=== PATIENT | male | born 1935 | race Caucasian/White ===

== ENCOUNTER → 2018-04-21 08:31 | Emergency (ER) | payer MEDICARE ==
[~2018-04-21 08:31] MED LIST: Meclizine TAB* 12.5 MG PO ONE
--- NOTE | 2018-04-21 08:57 | ED ---
Dizziness - HPI Summary HPI Summary: Patient is a 82 y/o M w/ c/o episodes of dizziness. He reports that episodes onset two weeks ago. Dizziness is described as room-spinning and is noted to be aggravated by bending over/sitting up. Fever, sore throat, chest pain, SOB are denied. Patient has a pacemaker and hearing aids. PMHx of third degree heart block as well. No PMHx of HTN, HLD, CVA. On triage, pain is denied, nothing is noted to alleviate Sx. Home medications and allergies are reviewed. - History Of Current Complaint Chief Complaint: EDDizziness Stated Complaint: DIZZY Time Seen by Provider: 04/21/18 08:46 Hx Obtained From: Patient Onset/Duration: Still Present Timing: Weeks - patient has had episodes for past two weeks Severity Currently: None - pain denied Character: Room Spinning Aggravating Factor(s): Position Change - bending over and sitting up, Change In Head Position Associated Signs And Symptoms: Positive: Other: - NEGATIVE: sore throat. Negative: Chest Pain, SOB, Fever - Allergies/Home Medications Allergies/Adverse Reactions: Allergies Allergy/AdvReac Type Severity Reaction Status Date / Time No Known Allergies Allergy Verified 04/21/18 08:45 PMH/Surg Hx/FS Hx/Imm Hx Endocrine/Hematology History: Reports: Other Endocrine/Hematological Disorders - NEGATIVE: HLD Cardiovascular History: Reports: Hx Pacemaker/ICD Denies: Hx Hypertension Sensory History: Reports: Hx Hearing Aid Neurological History: Denies: Hx CVA Infectious Disease History: No Infectious Disease History: Denies: Traveled Outside the [place] in Last 30 Days - Family History Known Family History: Negative: Blood Disorder - Social History Alcohol Use: None Substance Use Type: Reports: None Smoking Status (MU): Never Smoked Tobacco Review of Systems Negative: Fever Negative: Sore Throat Negative: Chest Pain Negative: Shortness Of Breath Neurological: Other - dizziness All Other Systems Reviewed And Are Negative: Yes Physical Exam - Summary Physical Exam Summary: Appearance: Well appearing, no pain distress Skin: warm, dry, reflects adequate perfusion Head/face: normal Eyes: EOMI, JOHN ENT: normal Neck: supple, non-tender Respiratory: CTA, breath sounds present Cardiovascular: RRR, pulses symmetrical Abdomen: non-tender, soft Bowel: present Musculoskeletal: normal, strength/ROM intact Neuro: normal, sensory motor intact, A&Ox3; GCS 15; patient reports dizziness when moving his head quickly from side to side Triage Information Reviewed: Yes Vital Signs On Initial Exam: Initial Vitals Temp Pulse Resp BP Pulse Ox 97.4 F 67 14 154/98 96 04/21/18 08:42 04/21/18 08:42 04/21/18 08:42 04/21/18 08:42 04/21/18 08:42 Vital Signs Reviewed: Yes Diagnostics - Vital Signs Vital Signs Temp Pulse Resp BP Pulse Ox 04/21/18 08:42 97.4 F 67 14 154/98 96 - Laboratory Result Diagrams: 04/21/18 09:08 04/21/18 09:08 Lab Statement: Any lab studies that have been ordered have been reviewed, and results considered in the medical decision making process. - CT BRAIN CT CT Interpretation Completed By: Radiologist Summary of CT Findings: NO EVIDENCE FOR ACUTE INTRACRANIAL ABNORMALITY. THIS REPORT WAS REVIEWED BY ED PHYSICIAN. - EKG 0918 Cardiac Rate: NL - RATE OF 60 BPM EKG Rhythm: Sinus Rhythm Summary of EKG Findings: NO ACUTE CHANGES Re-Evaluation - Re-Evaluation First Eval Re-Evaluation Time: 11:15 Comment: Results of labs and tests were discussed with patient. He will be discharged to home and follow up with PCP. Patient is agreeable with this plan. Dizzy Course/Dx - Course Course Of Treatment: Patient is a 82 y/o M w/ c/o episodes of dizziness. He reports that episodes onset two weeks ago. Dizziness is described as room- spinning and is noted to be aggravated by bending over/sitting up. Fever, sore throat, chest pain, SOB are denied. Patient has a pacemaker and hearing aids. PMHx of third degree heart block as well. No PMHx of HTN, HLD, CVA. On physical exam, patient reports dizziness when moving his head quickly from side to side, no other abnormal findings reported. GCS 15. During ED course, patient received Antivert Tab 25 mg. Bloodwork/UA was obtained. EKG showed sinus rhythm with rate of 60 BPM, no acute changes. BRAIN CT SHOWS NO EVIDENCE FOR ACUTE INTRACRANIAL ABNORMALITY. Results of labs and tests were discussed with patient. He will be discharged to home and follow up with PCP. Patient is agreeable with this plan. Dx of vertigo. - Diagnoses Differential Diagnosis/HQI/PQRI: Benign Paroxysmal Positional Vertigo, Dysrhythmia, Hypovolemia, Meniere's Disease Provider Diagnoses: Vertigo Discharge - Sign-Out/Discharge Documenting (check all that apply): Patient Departure - DISCHARGE - Discharge Plan Condition: Stable Disposition: HOME Prescriptions: Meclizine TAB* [Antivert 12.5 TAB*] 25 mg PO TID #15 tab Patient Education Materials: Vertigo (ED) Referrals: Silvino Toro MD [Primary Care Provider] - 3 Days Additional Instructions: FOLLOW UP WITH YOUR PRIMARY CARE PHYSICIAN IN THREE DAYS. RETURN TO ED FOR ANY NEW OR WORSENING SYMPTOMS. - Billing Disposition and Condition Condition: STABLE Disposition: Home - Attestation Statements Document Initiated by Scribe: Yes Documenting Scribe: Champ Simon Provider For Whom Gumaro is Documenting (Include Credential): Ben Ceron MD Scribe Attestation: Champ Strong , scribed for Ben Ceron MD on 04/21/18 at 1322. Scribe Documentation Reviewed: Yes Provider Attestation: The documentation as recorded by the Champ goss accurately reflects the service I personally performed and the decisions made by , Ben Ceron MD
[2018-04-21 09:14] LABS: ABS Basophils 0 10^3/ul (0-0.2); ABS Eosinophils 0.2 10^3/ul (0-0.6); ABS Lymphocytes 1.3 10^3/ul (1.0-4.8); ABS Monocytes 0.5 10^3/ul (0-0.8); ABS Nucleated RBC 0 10^3/ul; Eosinophil % 2.7 % (0-6); Hematocrit 42 % (42-52); Hemoglobin 14.5 g/dl (14.0-18.0); Lymphocyte % 21.2 % (25-47); Mean Corpuscular HGB Conc 35 g/dl (31-36); Mean Corpuscular Hemoglobin 31 pg (27-31); Mean Corpuscular Volume 89 fL (80-94); Mean Platelet Volume 7.8 um3 (7.4-10.4); Nucleated Red Blood Cells % 0.1; Platelet Count 148 10^3/ul (150-450); Red Blood Count 4.69 10^6/ul (4.00-5.40); Red Cell Distribution Width 13 % (10.5-15)
[2018-04-21 09:28] LABS: INR 0.9 (0.77-1.02)
--- NOTE | 2018-04-21 09:50 | RAD ---
INDICATION: Dizziness. COMPARISON: There are no relevant prior studies available for comparison. TECHNIQUE: Contiguous axial sections of the brain were obtained from the skull base to the vertex without contrast. FINDINGS: The ventricles, cisterns and sulci are enlarged consistent with diffuse atrophy. No significant focal abnormality or mass effect is seen. There is no evidence for hemorrhage. No significant focal osseous abnormality is seen. The visualized portion of the paranasal sinuses and mastoid air cells appear clear. IMPRESSION: NO EVIDENCE FOR ACUTE INTRACRANIAL ABNORMALITY.
[2018-04-21 10:58] LABS: Urine Appearance Clear; Urine Blood Negative (Negative); Urine Color Yellow; Urine Ketones Negative (Negative); Urine Protein Negative (Negative); Urine Specific Gravity 1.017 (1.010-1.030); Urine Urobilinogen Negative (Negative)
[2018-04-21 11:27] VITALS: BP 130/71
== END | disposition home or self-care (01) ==
LOC: ED 08:31
DX: R42 Dizziness and giddiness (principal); Z95.810 Presence of automatic (implantable) cardiac defibrillator
CPT/HCPCS: 36415; 70450; 80053; 81003; 84484; 85025; 85610; 85730; 93005; 99283; A9270-GY

== ENCOUNTER 2019-01-10 16:17 | Emergency (ER) | payer MEDICARE ==
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
[2019-01-10 17:37] VITALS: BP 128/49
== END 2019-01-10 17:37 | disposition home or self-care (01) ==
LOC: ED 16:17
DX: S50.312A Abrasion of left elbow, initial encounter (principal); S80.212A Abrasion, left knee, initial encounter; V13.4XXA Pedal cycle driver injured in collision with car, pick-up truck or van in traffic accident, initial encounter; Y93.55 Activity, bike riding; Y92.410 Unspecified street and highway as the place of occurrence of the external cause; Z95.0 Presence of cardiac pacemaker; Z87.891 Personal history of nicotine dependence
CPT/HCPCS: 99282

== ENCOUNTER 2019-04-15 09:56 | Inpatient (IN) | payer MEDICARE ==
[2019-04-15 10:31] LABS: ABS Eosinophils 0.1 10^3/ul (0-0.6); ABS Lymphocytes 1.2 10^3/ul (1.0-4.8); ABS Monocytes 0.7 10^3/ul (0-0.8); ABS Neutrophils 3.9 10^3/ul (1.5-7.7); Hematocrit 44 % (42-52); Hemoglobin 15.1 g/dL (14.0-18.0); Lymphocyte % 19.8 %; Mean Corpuscular HGB Conc 35 g/dL (31-36); Mean Corpuscular Hemoglobin 31 pg (27-31); Mean Corpuscular Volume 90 fL (80-94); Mean Platelet Volume 7.7 fL (7.4-10.4); Platelet Count 153 10^3/uL (150-450); Red Blood Count 4.87 10^6 /uL (4.18-5.48); Red Cell Distribution Width 14 % (10-15); White Blood Count 5.9 10^3/uL (3.5-10.8)
--- OUTSIDE RECORDS SUMMARY | 2019-04-15 10:33 | XMS REPORT | Continuity of Care Document ---
:1935 External Reference #:[id number] Author Name Jaydon Mcgee N.P. (transmitted by agent of provider Ria Crenshaw) Address [address] [facility], [facility] [place] [id number] Care Team Providers Name Role Phone Silvino Toro MD - Family Medicine Care Team Information Plant Wire Chief [phone] Korey Quesada MD - Emergency Care Team Information Plant Wire Chief [phone] Medicine Problems Active Problems Provider Date Cardiac pacemaker in situ Monique Tang M.D. Onset: 09/23/2013 Peripheral vascular disease Monique Tang M.D. Onset: 09/23/2013 Carotid artery occlusion Monique Tang M.D. Onset: 09/24/2014 Hyperlipidemia Monique Tang M.D. Onset: 09/24/2014 Pure hypercholesterolemia Monique Tang M.D. Onset: 11/27/2015 Aortic valve disorder Monique Tang M.D. Onset: 05/12/2017 Social History Type Date Description Comments Sex Unknown ETOH Use Denies alcohol use Tobacco Use Start: Unknown End: Patient is a former Quit at age 27-29, Unknown smoker smoked for 5 yr, quit in 1963 Recreational Drug Use Denies Drug Use Smoking Status Reviewed: 04/01/19 Patient is a former Quit at age 27-29, smoker smoked for 5 yr, quit in 1963 Exercise Type/Frequency Exercises regularly Allergies, Adverse Reactions, Alerts Description No Known Drug Allergies Medications Active Medications SIG Qnty Indications Ordering Provider Date Crestor 1 by mouth every 90tabs E78.00 Monique Tang, 05/03/2016 20mg Tablets day M.D. Aspirin 1 by mouth every Unknown 81mg Tablets DR day Multivitamins 1 capsule daily 30caps Unknown Capsules Coq-10 1 by mouth every 90caps Unknown 50mg Capsules day Fish Oil Burp-Less 1 by mouth daily Unknown 100mg Capsules Probiotic 1 by mouth every Unknown Capsules day Immunizations Description No Information Available Vital Signs Date Vital Result Comment 04/01/2019 10:28am Height 67.75 inches 5'7.75" Weight 160.38 lb Heart Rate 74 /min BP Systolic 122 mmHg BP Diastolic 72 mmHg BMI (Body Mass Index) 24.6 kg/m2 03/29/2019 3:08pm Height 67.75 inches 5'7.75" Weight 158.00 lb with shoes Heart Rate 60 /min BP Systolic Sitting 122 mmHg BP Diastolic Sitting 66 mmHg BP Systolic Standing 118 mmHg BP Diastolic Standing 60 mmHg BMI (Body Mass Index) 24.2 kg/m2 Ejection Fraction 55-60% Echo 11/11/16 Results Description No Information Available Procedures Date Code Description Status 03/29/2019 39349 Pace Maker Eval W/Iterative Adjment Dual Lead Completed 03/29/2019 09553 EKG Tracing & Interpretation Completed Medical Devices Description No Information Available Encounters Description No Information Available Assessments Date Code Description Provider 04/01/2019 R53.83 Other fatigue Jaydon Mcgee, N.P. 04/01/2019 R41.3 Other amnesia Jaydon Mcgee N.P. 04/01/2019 R42 Dizziness and giddiness Jaydon Mcgee N.P. 03/29/2019 Z95.0 Presence of cardiac pacemaker Linette Bellamy NP 03/29/2019 Z95.0 Presence of cardiac pacemaker Ica Pacer Schedule 03/29/2019 I65.23 Occlusion and stenosis of bilateral carotid Linette Bellamy NP arteries 03/29/2019 R55 Syncope and collapse Ica Pacer Schedule 03/29/2019 E78.00 Pure hypercholesterolemia, unspecified Linette Bellamy NP 03/29/2019 I35.0 Nonrheumatic aortic (valve) stenosis Linette Bellamy NP 03/29/2019 Z79.899 Other predatory animal exterminator (current) drug therapy Linette Bellamy NP Plan of Treatment Future Appointment(s):05/16/2019 9:00 am - Jaydon Mcege N.P. at [facility]04/08/2019 2:00 pm - Ica ECHO Schedule at [facility]04/01/2019 - Jaydon Mcgee N.P.R53.83 Other fatigueFollow up :6 weeksRecommendations:The medication we would consider starting is StycmkrP47.3 Other amnesiaNew Xrays:CT Brain Wo, Ordered: Recommendations:Please send over the carotid u/s reports and the echocardiogram please remain active and social, please start doing either crossword puzzle, jigsaw puzzles, or word searches,R42 Dizziness and giddiness Functional Status Description No Information Available Mental Status Description No Information Available Referrals Description No Information Available
--- OUTSIDE RECORDS SUMMARY | 2019-04-15 10:34 | XMS REPORT | Continuity of Care Document ---
:1935 External Reference #:[id number] Author Name Linette Bellamy NP (transmitted by agent of provider Elsie Carlson) Address [address] [place] [id number] Care Team Providers Name Role Phone Silvino Toro MD - Family Medicine Care Team Information Adaptive Physical Educator Korey Quesada MD - Emergency Care Team Information Adaptive Physical Educator [phone] Medicine Problems Active Problems Provider Date Cardiac [...] Use Denies Drug Use Smoking Status Reviewed: 03/29/19 Patient is a former Quit at age [...] Available Vital Signs Date Vital Result Comment 03/29/2019 3:08pm Height 67.75 inches 5'7.75" Weight 158.00 lb with shoes Heart Rate 60 /min BP Systolic Sitting 122 mmHg BP Diastolic Sitting 66 mmHg BP Systolic Standing 118 mmHg BP Diastolic Standing 60 mmHg BMI (Body Mass Index) 24.2 kg/m2 Ejection Fraction 55-60% Echo 11/11/16 12/08/2017 3:43pm Height 67.75 inches 5'7.75" Weight 178.00 lb with shoes Heart Rate 60 /min BP Systolic Sitting 110 mmHg Lue reg cuff BP Diastolic Sitting 60 mmHg Lue reg cuff BP Systolic Standing 114 mmHg Lue reg cuff BP Diastolic Standing 70 mmHg Lue reg cuff Respiratory Rate 16 /min BMI (Body Mass Index) 27.3 kg/m2 Ejection Fraction 55-60% date 11/11/16 ECHO Results Description No Information Available Procedures Date Code Description Status 03/29/2019 02265 Pace Maker Eval W/Iterative Adjment Dual Lead Completed 03/29/2019 35630 EKG Tracing & Interpretation Completed Medical Devices Description No Information Available Encounters Description No Information Available Assessments Date Code Description Provider 03/29/2019 Z95.0 Presence of cardiac pacemaker Linette Bellamy NP 03/29/2019 Z95.0 Presence of cardiac pacemaker Ica Pacer Schedule 03/29/2019 I65.23 Occlusion and stenosis of bilateral carotid Linette Bellamy NP arteries 03/29/2019 R55 Syncope and collapse Ica Pacer Schedule 03/29/2019 E78.00 Pure hypercholesterolemia, unspecified Linette Bellamy NP 03/29/2019 I35.0 Nonrheumatic aortic (valve) stenosis Linette Bellamy NP 03/29/2019 Z79.899 Other rodent exterminator (current) drug therapy Linette Bellamy NP Plan of Treatment Future Appointment(s):04/08/2019 2:00 pm - Ica ECHO Schedule at [facility]04/01/2019 10:30 am - Jaydon Mcgee N.P. at [facility]03/29/2019 - Linette Bellamy, NPZ95.0 Presence of cardiac pacemakerFollow up:follow up in one year with Dr. Hamilton.23 Occlusion and stenosis of bilateral carotid arteriesNew Xrays:VL Carotid Bilateral, Scheduled: 04/16/19E78.00 Pure hypercholesterolemia, dquvcewaxyoC66.0 Nonrheumatic aortic (valve) stenosisNew Orders:Echocardiogram, Ordered: 03/29/19Z79.899 Other retirement (current) drug therapy Functional Status Description No Information Available Mental Status Description No Information Available Referrals Description No Information Available
[2019-04-15 10:44] LABS: INR 0.96 (0.82-1.09)
[2019-04-15 10:48] LABS: Albumin 4.5 g/dL (3.2-5.2); Albumin/Globulin Ratio 1.9 (1-3); BUN/Creatinine Ratio 21.8 (8-20); Calcium 9.7 mg/dL (8.6-10.3); EGFR African American 101.2 (>60); EGFR Non-African American 83.6 (>60); Globulin 2.4 g/dL (2-4); Potassium 4.2 mmol/L (3.5-5.0); Total Bilirubin 0.9 mg/dL (0.2-1.0); Total Protein 6.9 g/dL (6.4-8.9)
[2019-04-15] MEDS ORDERED: levETIRAcetam TAB* 500 MG PO ONE (12:10)
[2019-04-15 13:09] LABS: Activated Partial Thrombo Time 39.6 seconds (26.0-38.0)
[2019-04-15] MEDS ORDERED: Acetaminophen TAB* 325 MG PO PRN (14:33)
[2019-04-15] MEDS ORDERED: Ondansetron INJ* 2 MG/ML VIAL IV PRN (14:33)
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
[2019-04-15] MEDS: NS 0.9% 1000 ML** 1,000 ML IV SCH (23:34)
[2019-04-16 06:09] LABS: ABS Eosinophils 0.1 10^3/ul (0-0.6); ABS Lymphocytes 1.5 10^3/ul (1.0-4.8); ABS Monocytes 0.6 10^3/ul (0-0.8); ABS Neutrophils 3.4 10^3/ul (1.5-7.7); Eosinophil % 1.9 %; Hematocrit 41 % (42-52); Lymphocyte % 26.4 %; Mean Corpuscular HGB Conc 34 g/dL (31-36); Mean Corpuscular Hemoglobin 31 pg (27-31); Mean Corpuscular Volume 90 fL (80-94); Mean Platelet Volume 7.5 fL (7.4-10.4); Nucleated Red Blood Cells % 0.1; Platelet Count 138 10^3/uL (150-450); Red Blood Count 4.58 10^6 /uL (4.18-5.48); Red Cell Distribution Width 14 % (10-15); White Blood Count 5.7 10^3/uL (3.5-10.8)
[2019-04-16 06:37] LABS: BUN/Creatinine Ratio 23.8 (8-20); Calcium 9.2 mg/dL (8.6-10.3); EGFR African American 111.4 (>60); EGFR Non-African American 92.1 (>60); Potassium 3.9 mmol/L (3.5-5.0)
[2019-04-16] MEDS: Lactobacillus Acidophilus* 1 TAB PO SCH (11:05)
[2019-04-16] MEDS: Multivitamins/Minerals TAB PO SCH (11:05)
[2019-04-16] MEDS: Memantine TAB* 5 MG PO SCH (11:05)
[2019-04-16] MEDS: Atorvastatin* 10 MG TAB PO SCH (11:05)
[2019-04-16] MEDS: CMCS:OMEGA-3 FATTY ACIDS (NF) 1,000 MG CAP PO SCH (11:06)
--- NOTE | 2019-04-16 14:24 | PN ---
Progress Note - Progress Note Date of Service: 04/16/19 SOAP: Subjective: []No events ON. In ICU. NPO overnight for OR today. Objective: []VSS, Afebrile. AAOx2 JOHN, CN II-XII grossly intact, except decreased hearing bilaterally. Motor 5/5 no drift sensory grossly intact to light touch. Assessment: []83 yom Left Chronic SDH Plan: []Monitor VS, Neurochecks Patient and family would like to transfer to [place] for possible surgery due to coverage over the weekend. Discussed in extend with patient. Patient will be transferred to [place]. Appreciate IM care. Les Jesus MD
[2019-04-16] MEDS: NS 0.9% 1000 ML** 1,000 ML IV SCH (19:24)
--- NOTE | 2019-04-16 22:12 | PN ---
Subjective Date of Service: 04/16/19 Interval History: Patient reports that he is feeling well, reports that he is having difficulty with his memory. Patient denies chest pain or shortness of breath. Denies fever or chills. Denies abd pain n/v/d. Family present in the room at the time evaluation. Requesting that the patient be transferred for surgical intervention d/t neurosurgery recommendation for surgery but not available for surgery coverage as of . Spoke to neurosurgery agreeable with plan to transfer d/t the patient's wishes to proceed with surgery. [id number]- transfer center contact - no bed available at [facility] - no bed available at this time will place on waiting list. contacted [facility] - Spoke to neurosurgery who recommended medical management and monitoring, Dr. Yoo advised and given neurosurgery Dr. Can contact number- to further discuss the case. contacted to [facility] - spoke to neurosurgery who recommended medical management, transfer to hospital service and then they would consult. Hospitalist service declined acceptance. Updated Dr. Yoo of no bed availability and no acceptance at the other facilities. recommended repeat CT of head in the AM and he will make further recommendations in the AM. Family History: Unchanged from Admission Social History: Unchanged from Admission Past Medical History: Unchanged from Admission Objective Active Medications: Acetaminophen (Tylenol Tab*) 650 mg PO Q4H PRN PRN Reason: MILD PAIN or TEMP > 100.4 Last Admin: 04/16/19 12:36 Dose: 650 mg Atorvastatin Calcium (Lipitor*) 10 mg PO DAILY [facility] Last Admin: 04/16/19 11:05 Dose: Not Given Fish Oil (Fish Oil (Nf)) 1,000 mg PO DAILY [facility]; Protocol Last Admin: 04/16/19 11:06 Dose: Not Given Sodium Chloride (Ns 0.9% 1000 Ml) 1,000 mls @ 50 mls/hr IV .PER RATE [facility] Last Admin: 04/16/19 19:24 Dose: 50 mls/hr Lactobacillus Rhamnosus (Lactobacillus Acidophilus*) 1 tab PO DAILY [facility] Last Admin: 04/16/19 11:05 Dose: Not Given Memantine (Namenda Tab*) 5 mg PO QAM [facility] Last Admin: 04/16/19 11:05 Dose: Not Given Multivitamins/Minerals (Theragran/Minerals Tab*) 1 tab PO DAILY WITH MEAL [facility] Last Admin: 10/22/19 11:05 Dose: Not Given Ondansetron HCl (Zofran Inj*) 4 mg IV Q6H PRN PRN Reason: NAUSEA/VOMITING Vital Signs - 8 hr 04/16/19 04/16/19 04/16/19 14:00 15:00 16:00 Temperature Pulse Rate 64 61 74 Respiratory 21 28 17 Rate Blood Pressure 148/74 (mmHg) O2 Sat by Pulse 96 96 96 Oximetry 04/16/19 04/16/19 04/16/19 16:10 16:54 17:00 Temperature 98.1 F Pulse Rate 70 66 Respiratory 28 19 Rate Blood Pressure 129/93 131/82 (mmHg) O2 Sat by Pulse 96 96 Oximetry 04/16/19 04/16/19 04/16/19 18:00 18:43 19:01 Temperature Pulse Rate 65 77 81 Respiratory 18 20 13 Rate Blood Pressure 134/72 97/81 (mmHg) O2 Sat by Pulse 96 98 96 Oximetry 04/16/19 04/16/19 04/16/19 19:33 20:14 21:00 Temperature 98.9 F Pulse Rate 68 Respiratory 29 25 Rate Blood Pressure 145/63 (mmHg) O2 Sat by Pulse 96 Oximetry 04/16/19 21:43 Temperature Pulse Rate 77 Respiratory 24 Rate Blood Pressure 155/79 (mmHg) O2 Sat by Pulse 97 Oximetry Oxygen Devices in Use Now: None Appearance: appears comfortable , no acute distress Eyes: No Scleral Icterus Ears/Nose/Mouth/Throat: Clear Oropharnyx, Mucous Membranes Moist Neck: NL Appearance and Movements; NL JVP, Trachea Midline Respiratory: Symmetrical Chest Expansion and Respiratory Effort, Clear to Auscultation Cardiovascular: NL Sounds; No Murmurs; No JVD, No Edema Abdominal: NL Sounds; No Tenderness; No Distention Extremities: No Edema, No Clubbing, Cyanosis Skin: No Rash or Ulcers Neurological: Alert and Oriented x 3, NL Sensation, NL Muscle Strength and Tone Nutrition: Taking PO's Result Diagrams: 04/16/19 05:50 04/16/19 05:50 Additional Lab and Data: Lab Results 04/15/19 04/15/19 04/15/19 Range/Units 10:18 10:18 10:18 WBC 5.9 (3.5-10.8) 10^3/uL RBC 4.87 (4.18-5.48) 10^6 /uL Hgb 15.1 (14.0-18.0) g/dL Hct 44 (42-52) % MCV 90 (80-94) fL MCH 31 (27-31) pg MCHC 35 (31-36) g/dL RDW 14 (10-15) % Plt Count 153 (150-450) 10^3/uL MPV 7.7 (7.4-10.4) fL Neut % (Auto) 66.9 % Lymph % (Auto) 19.8 % [place] % (Auto) 11.8 % Eos % (Auto) 1.0 % Baso % (Auto) 0.5 % Absolute Neuts (auto) 3.9 (1.5-7.7) 10^3/ul Absolute Lymphs (auto) 1.2 (1.0-4.8) 10^3/ul Absolute Monos (auto) 0.7 (0-0.8) 10^3/ul Absolute Eos (auto) 0.1 (0-0.6) 10^3/ul Absolute Basos (auto) 0.0 (0-0.2) 10^3/ul Absolute Nucleated RBC 0.0 10^3/ul Nucleated RBC % 0.0 INR (Anticoag Therapy) 0.96 (0.82-1.09) APTT 39.6 H (26.0-38.0) seconds Sodium 139 (135-145) mmol/L Potassium 4.2 (3.5-5.0) mmol/L Chloride 106 (101-111) mmol/L Carbon Dioxide 26 (22-32) mmol/L Anion Gap 7 (2-11) mmol/L BUN 19 (6-24) mg/dL Creatinine 0.87 (0.67-1.17) mg/dL Est GFR ( Amer) 101.2 (>60) Est GFR (Non-Af Amer) 83.6 (>60) BUN/Creatinine Ratio 21.8 H (8-20) Glucose 117 H (70-100) mg/dL Calcium 9.7 (8.6-10.3) mg/dL Total Bilirubin 0.90 (0.2-1.0) mg/dL AST 19 (13-39) U/L ALT 14 (7-52) U/L Alkaline Phosphatase 48 (34-104) U/L Total Protein 6.9 (6.4-8.9) g/dL Albumin 4.5 (3.2-5.2) g/dL Globulin 2.4 (2-4) g/dL Albumin/Globulin Ratio 1.9 (1-3) Microbiology and Other Data: Microbiology 04/15/19 13:50 Nasal Screen MRSA (PCR) - Final Nasal Mrsa Not Detected Assess/Plan/Problems-Billing Assessment: patient was admitted d/t new finding of subdural hematoma and memory difficulty , no neurological deficits - Patient Problems (1) SDH (subdural hematoma) Current Visit: Yes Status: Acute Code(s): S06.5X9A - TRAUM SUBDR HEM W LOC OF UNSP DURATION, INIT SNOMED Code(s): 878673946 Comment: Management per neurosurgery - recommended transfer for neurosurgery - no beds available/ or facility acceptance - patient and neurosurgery updated - willrepeat CT of the brain in the AM as per neurosurgery recommendations - will monitor in the ICU tonight, neurological checks Q 4 hours (2) HLD (hyperlipidemia) Current Visit: Yes Status: Acute Code(s): E78.5 - HYPERLIPIDEMIA, UNSPECIFIED SNOMED Code(s): 57375146 Comment: continue statin (3) DVT prophylaxis Current Visit: Yes Status: Acute Code(s): Z29.9 - ENCOUNTER FOR PROPHYLACTIC MEASURES, UNSPECIFIED SNOMED Code(s): 660109862 Comment: ANCA (4) Full code status Current Visit: Yes Status: Acute Code(s): Z78.9 - OTHER SPECIFIED HEALTH STATUS SNOMED Code(s): 407976508 Status and Disposition: inpatient
[2019-04-17] MEDS ORDERED: hydrALAZINE IV* 20 MG/ML VIAL IV SLOW PU PRN (01:57)
[2019-04-17] MEDS ORDERED: Haloperidol INJ IV/IM* 5 MG/ML AMP ONE (02:34)
[2019-04-17] MEDS ORDERED: diPHENhydraMINE IV* 50 MG/ML 1 ml VIAL (BENADRYL) ONE (02:34)
[2019-04-17] MEDS ORDERED: Haloperidol INJ IV/IM* 5 MG/ML AMP IV SLOW PU ONE (03:00)
[2019-04-17] MEDS ORDERED: diPHENhydraMINE IV* 50 MG/ML 1 ml VIAL (BENADRYL) SLOW PUSH ONE (03:00)
[2019-04-17 04:47] LABS: Hematocrit 41 % (42-52); Hemoglobin 14.1 g/dL (14.0-18.0); Mean Corpuscular HGB Conc 35 g/dL (31-36); Mean Corpuscular Hemoglobin 31 pg (27-31); Mean Corpuscular Volume 89 fL (80-94); Mean Platelet Volume 7.3 fL (7.4-10.4); Platelet Count 138 10^3/uL (150-450); Red Blood Count 4.58 10^6 /uL (4.18-5.48); Red Cell Distribution Width 14 % (10-15); White Blood Count 6.6 10^3/uL (3.5-10.8)
[2019-04-17] MEDS: Multivitamins/Minerals TAB PO SCH (07:49)
[2019-04-17] MEDS: Memantine TAB* 5 MG PO SCH (07:49)
[2019-04-17] MEDS: Lactobacillus Acidophilus* 1 TAB PO SCH (07:49)
[2019-04-17] MEDS: CMCS:OMEGA-3 FATTY ACIDS (NF) 1,000 MG CAP PO SCH (07:49)
[2019-04-17] MEDS: Atorvastatin* 10 MG TAB PO SCH (07:49)
--- NOTE | 2019-04-17 18:54 | PN ---
Subjective Date of Service: 04/17/19 Interval History: Nursing staff reports that the patient became aggressive overnight and was given benadryl and haldol. Spoke to son and daughter today and updated on no bed availability or acceptance. Spoke to Dr. Yoo recommends to stay overnight and be monitored Daughter reports that the patient has had difficulty with memory since the winter and has been having a slow progression until the last 6 week have noticed a sharp decline. Patient denies headache, dizziness or shortness of breath. Denies chest pain. Denies n/v/d. Patient does ask repetitive questions at times but is alert and oriented x3 Family History: Unchanged from Admission Social History: Unchanged from Admission Past Medical History: Unchanged from Admission Objective Active Medications: Acetaminophen (Tylenol Tab*) 650 mg PO Q4H PRN PRN Reason: MILD PAIN or TEMP > 100.4 Last Admin: 04/16/19 12:36 Dose: 650 mg Atorvastatin Calcium (Lipitor*) 10 mg PO DAILY [facility] Last Admin: 04/17/19 07:49 Dose: 10 mg Fish Oil (Fish Oil (Nf)) 1,000 mg PO DAILY [facility]; Protocol Last Admin: 04/17/19 07:49 Dose: 1,000 mg Hydralazine HCl (Apresoline Iv*) 5 mg IV SLOW PU Q6H PRN PRN Reason: Systolic Bp Greater Than:160 Last Admin: 04/17/19 02:14 Dose: 5 mg Lactobacillus Rhamnosus (Lactobacillus Acidophilus*) 1 tab PO DAILY [facility] Last Admin: 04/17/19 07:49 Dose: 1 tab Memantine (Namenda Tab*) 5 mg PO QAM [facility] Last Admin: 04/17/19 07:49 Dose: 5 mg Multivitamins/Minerals (Theragran/Minerals Tab*) 1 tab PO DAILY WITH MEAL [facility] Last Admin: 04/17/19 07:49 Dose: 1 tab Ondansetron HCl (Zofran Inj*) 4 mg IV Q6H PRN PRN Reason: NAUSEA/VOMITING Vital Signs - 8 hr 04/17/19 04/17/19 04/17/19 11:00 11:11 13:45 Temperature 98.6 F 97.6 F Pulse Rate 61 75 Respiratory 22 16 Rate Blood Pressure 110/60 133/53 (mmHg) O2 Sat by Pulse 95 96 Oximetry 04/17/19 04/17/19 14:16 15:55 Temperature 97.5 F Pulse Rate 64 Respiratory 16 18 Rate Blood Pressure 112/59 (mmHg) O2 Sat by Pulse 96 Oximetry Oxygen Devices in Use Now: None Appearance: appears comfortable resting in bed , no acute distress Eyes: No Scleral Icterus Ears/Nose/Mouth/Throat: Clear Oropharnyx, Mucous Membranes Moist Neck: NL Appearance and Movements; NL JVP, Trachea Midline Respiratory: Symmetrical Chest Expansion and Respiratory Effort, Clear to Auscultation Cardiovascular: NL Sounds; No Murmurs; No JVD, No Edema Abdominal: NL Sounds; No Tenderness; No Distention Extremities: No Edema, No Clubbing, Cyanosis Skin: No Rash or Ulcers Neurological: Alert and Oriented x 3, NL Sensation, NL Muscle Strength and Tone Nutrition: Taking PO's Result Diagrams: 04/17/19 04:36 04/16/19 05:50 Additional Lab and Data: Lab Results 04/15/19 04/15/19 04/15/19 Range/Units 10:18 10:18 10:18 WBC 5.9 (3.5-10.8) 10^3/uL RBC 4.87 (4.18-5.48) 10^6 /uL Hgb 15.1 (14.0-18.0) g/dL Hct 44 (42-52) % MCV 90 (80-94) fL MCH 31 (27-31) pg MCHC 35 (31-36) g/dL RDW 14 (10-15) % Plt Count 153 (150-450) 10^3/uL MPV 7.7 (7.4-10.4) fL Neut % (Auto) 66.9 % Lymph % (Auto) 19.8 % [place] % (Auto) 11.8 % Eos % (Auto) 1.0 % Baso % (Auto) 0.5 % Absolute Neuts (auto) 3.9 (1.5-7.7) 10^3/ul Absolute Lymphs (auto) 1.2 (1.0-4.8) 10^3/ul Absolute Monos (auto) 0.7 (0-0.8) 10^3/ul Absolute Eos (auto) 0.1 (0-0.6) 10^3/ul Absolute Basos (auto) 0.0 (0-0.2) 10^3/ul Absolute Nucleated RBC 0.0 10^3/ul Nucleated RBC % 0.0 INR (Anticoag Therapy) 0.96 (0.82-1.09) APTT 39.6 H (26.0-38.0) seconds Sodium 139 (135-145) mmol/L Potassium 4.2 (3.5-5.0) mmol/L Chloride 106 (101-111) mmol/L Carbon Dioxide 26 (22-32) mmol/L Anion Gap 7 (2-11) mmol/L BUN 19 (6-24) mg/dL Creatinine 0.87 (0.67-1.17) mg/dL Est GFR ( Amer) 101.2 (>60) Est GFR (Non-Af Amer) 83.6 (>60) BUN/Creatinine Ratio 21.8 H (8-20) Glucose 117 H (70-100) mg/dL Calcium 9.7 (8.6-10.3) mg/dL Total Bilirubin 0.90 (0.2-1.0) mg/dL AST 19 (13-39) U/L ALT 14 (7-52) U/L Alkaline Phosphatase 48 (34-104) U/L Total Protein 6.9 (6.4-8.9) g/dL Albumin 4.5 (3.2-5.2) g/dL Globulin 2.4 (2-4) g/dL Albumin/Globulin Ratio 1.9 (1-3) Microbiology and Other Data: Microbiology 04/15/19 13:50 Nasal Screen MRSA (PCR) - Final Nasal Mrsa Not Detected Assess/Plan/Problems-Billing Assessment: patient was admitted d/t new finding of subdural hematoma and memory difficulty , no neurological deficits - Patient Problems (1) SDH (subdural hematoma) Status: Acute Code(s): S06.5X9A - TRAUM SUBDR HEM W LOC OF UNSP DURATION, INIT SNOMED Code(s): 494483193 Comment: Management per neurosurgery - recommended transfer for neurosurgery - no beds available/ or facility acceptance - patient and neurosurgery updated- willstay to be monitored - repeat CT of the brain -stable no change - will monitor, neurological checks Q 4 hours - transfer to the floor (2) HLD (hyperlipidemia) Status: Acute Code(s): E78.5 - HYPERLIPIDEMIA, UNSPECIFIED SNOMED Code(s): 22129927 Comment: continue statin (3) DVT prophylaxis Status: Acute Code(s): Z29.9 - ENCOUNTER FOR PROPHYLACTIC MEASURES, UNSPECIFIED SNOMED Code(s): 919420092 Comment: ANCA (4) Full code status Status: Acute Code(s): Z78.9 - OTHER SPECIFIED HEALTH STATUS SNOMED Code(s) : 215644393 Status and Disposition: inpatient
--- NOTE | 2019-04-17 19:31 | PN ---
Progress Note - Progress Note Date of Service: 04/17/19 SOAP: Subjective: []Patient seen and examined in am. No events ON. In ICU. Family decided to have surgery in an other hospital yesterday. Objective: []VSS, Afebrile. AAOx2 JOHN, CN II-XII grossly intact, except decreased hearing bilaterally. Motor 5/5 no drift sensory grossly intact to light touch. Assessment: []83 yom Left Chronic SDH Plan: [] Monitor VS, Neurochecks Patient and family would like to transfer to [place] for possible surgery. Discussed in extend with patient. Patient awaiting transfer. Appreciate IM care. Les Jesus MD
--- NOTE | 2019-04-17 19:45 | PN ---
Progress Note - Progress Note Date of Service: 04/17/19 Note: Patient seen this pm. In regular floor. Neuro exam stable. CT stable. No family at bedside. Called Manju, patient's daughter. Left message on VM. Les Jesus MD
[2019-04-18 08:02] VITALS: BP 138/61
[2019-04-18] MEDS: Lactobacillus Acidophilus* 1 TAB PO SCH (10:09)
[2019-04-18] MEDS: Atorvastatin* 10 MG TAB PO SCH (10:09)
[2019-04-18] MEDS: Multivitamins/Minerals TAB PO SCH (10:09)
[2019-04-18] MEDS: CMCS:OMEGA-3 FATTY ACIDS (NF) 1,000 MG CAP PO SCH (10:10)
[2019-04-18] MEDS: Memantine TAB* 5 MG PO SCH (10:52)
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
--- NOTE | 2019-04-18 19:13 | PN ---
Progress Note - Progress Note Date of Service: 04/18/19 SOAP: Subjective: [] Patient seen and examined in am. No events ON. On regular floor. Daughter and son at bedside. Objective: [] VSS, Afebrile. AAOx2 JOHN, CN II-XII grossly intact, except decreased hearing bilaterally. Motor 5/5 no drift sensory grossly intact to light touch. Assessment: []83 yom Left Chronic SDH Plan: [] Monitor VS, Neurochecks Discussed in extend with patient and family regarding possible options. Conservative approach vs surgical intervention was explained in extend including risks and benefits, expectations, limitations and possible complications of each approach. Patient and family would like to hold off from surgery at this point and would like to take patient home. They understand the possible outcome and possible need for emergency return to the OR , emergency surgical intervention and possible transfer. Will be happy to follow patient in the office in one week with a new CT of the head. Full instructions were given. Family understand the importance of fall and SZ precautions and possible outcome of hematoma expansion including paralysis and and know to call 911 and bring patient to hospital if any neurological changes occur. Appreciate IM care. Les Jesus MD
== END 2019-04-18 12:30 | disposition home or self-care (01) | DRG 87 ==
LOC: ED 09:56 → MEDTELE 12:58 → ICU 13:17 → UNDOADMOB 13:17 → ICU 13:51 → OBSVTOIN 04-16 21:54 → INTOOBSV 04-16 21:54 → MEDTELE 04-17 13:44 → ICU 04-17 13:44 → UNDODISIN 04-18 12:30
PROVIDERS: ADMIT Internal Medicine; ATTEND Internal Medicine
DX: S06.5X0A Traumatic subdural hemorrhage without loss of consciousness, initial encounter (principal); E78.5 Hyperlipidemia, unspecified; E78.00 Pure hypercholesterolemia, unspecified; R40.2362 Coma scale, best motor response, obeys commands, at arrival to emergency department; R40.2142 Coma scale, eyes open, spontaneous, at arrival to emergency department; I65.29 Occlusion and stenosis of unspecified carotid artery; R40.2252 Coma scale, best verbal response, oriented, at arrival to emergency department; I73.9 Peripheral vascular disease, unspecified; H91.93 Unspecified hearing loss, bilateral; M47.812 Spondylosis without myelopathy or radiculopathy, cervical region; M47.816 Spondylosis without myelopathy or radiculopathy, lumbar region; Y92.009 Unspecified place in unspecified non-institutional (private) residence as the place of occurrence of the external cause; Z87.891 Personal history of nicotine dependence; Z95.0 Presence of cardiac pacemaker; Z97.4 Presence of external hearing-aid; V29.9XXA Motorcycle rider (driver) (passenger) injured in unspecified traffic accident, initial encounter
CPT/HCPCS: 36415; 70450; 72125; 72128; 72131; 80048; 80053; 85025; 85027; 85610; 85730; 87641; 93005; 99284; A9270-GY; G0378; J0360; J1200; J1630

== ENCOUNTER 2022-02-10 01:04 | Inpatient (IN) ==
[2022-02-10] MEDS ORDERED: Morphine 2 MG/ML SYRINGE IV ONE (01:29)
[2022-02-10 01:33] LABS: ABS Eosinophils 0.1 10^3/ul (0-0.6); ABS Lymphocytes 1.5 10^3/ul (1.0-4.8); ABS Monocytes 0.5 10^3/ul (0-0.8); ABS Neutrophils 3.2 10^3/ul (1.5-7.7); Eosinophil % 2.4 %; Hematocrit 34 % (42-52); Hemoglobin 11.3 g/dL (14.0-18.0); Lymphocyte % 27.5 %; Mean Corpuscular HGB Conc 34 g/dL (31-36); Mean Corpuscular Hemoglobin 30 pg (27-31); Mean Corpuscular Volume 90 fL (80-94); Mean Platelet Volume 7.7 fL (7.4-10.4); Nucleated Red Blood Cells % 0.1; Platelet Count 113 10^3/uL (150-450); Red Blood Count 3.75 10^6 /uL (4.18-5.48); Red Cell Distribution Width 13 % (10-15); White Blood Count 5.4 10^3/uL (3.5-10.8)
[2022-02-10 01:38] LABS: INR 1.05 (0.89-1.11)
[2022-02-10 02:09] LABS: Albumin/Globulin Ratio 2.4 (1-3); Globulin 1.7 g/dL (2-4); Potassium 4.1 mmol/L (3.5-5.0); Total Bilirubin 0.5 mg/dL (0.2-1.0); Total Protein 5.7 g/dL (6.4-8.9)
[2022-02-10] MEDS: Morphine 2 MG/ML SYRINGE IV PRN ×4 (03:18→17:15)
[2022-02-10] MEDS ORDERED: Polyethylene Glycol 3350 17 GM PACKET PO PRN (05:52)
[2022-02-10] MEDS: Lactated Ringers 1000 ml BAG 1,000 ML IV SCH ×2 (06:26→14:14)
[2022-02-10] MEDS ORDERED: ceFAZolin 2 GM in NS PREMIX 2 GM/100 ML BAG IVPB ONE (19:02)
[2022-02-10] MEDS ORDERED: Lidocaine 2% PF 5 ML VIAL ONE (19:03)
[2022-02-10] MEDS ORDERED: Etomidate 20 mg/10 ml 2 MG/ML 10 ml VIAL ONE (19:03)
[2022-02-10] MEDS ORDERED: fentaNYL 100 mcg/2 ml 50 MCG/ML VIAL ONE (19:04)
[2022-02-10] MEDS ORDERED: Bupivacaine 0.5% SDV PF 30ML VIAL ONE (19:40)
[2022-02-10] MEDS ORDERED: Naloxone 0.4 mg VIAL 0.4 mg/ml 1 ml VIAL IV PRN (19:44)
[2022-02-10] MEDS ORDERED: HYDROcodone/ACETAMIN 5/325 mg TAB PO PRN (19:44)
[2022-02-10] MEDS ORDERED: Prochlorperazine 5 mg/ml 2 ml VIAL (10 mg) IV PRN (19:44)
[2022-02-10] MEDS ORDERED: fentaNYL 100 mcg/2 ml 50 MCG/ML VIAL IV PRN (19:44)
[2022-02-10] MEDS ORDERED: Propofol 10 MG/ML 20 ML BTL ONE ×2 (20:29→21:29)
[2022-02-10] MEDS ORDERED: Phenylephrine 40 mcg/mL 10mL (400mcg) SYRINGE ONE (20:57)
[2022-02-10] MEDS ORDERED: Bupivacaine 0.25% EPI 200,000 30 ML SDV ONE (21:53)
[2022-02-11] MEDS: Morphine 2 MG/ML SYRINGE IV PRN ×3 (01:14→16:02)
[2022-02-11] MEDS: ceFAZolin 1 GM X 3 DOSES POST-OP Q8H (AddVan) IVPB SCH ×2 (04:49→12:22)
[2022-02-11] MEDS ORDERED: Enoxaparin 40 MG/0.4 ML SYR SUBCUT SCH (09:00)
[2022-02-11 10:33] LABS: ABS Monocytes 1.2 10^3/ul (0-0.8); ABS Neutrophils 7.3 10^3/ul (1.5-7.7); Eosinophil % 0.1 %; Hematocrit 20 % (42-52); Hemoglobin 6.6 g/dL (14.0-18.0); Lymphocyte % 10.7 %; Mean Corpuscular HGB Conc 34 g/dL (31-36); Mean Corpuscular Hemoglobin 31 pg (27-31); Mean Corpuscular Volume 91 fL (80-94); Mean Platelet Volume 8.2 fL (7.4-10.4); Platelet Count 109 10^3/uL (150-450); Red Blood Count 2.15 10^6 /uL (4.18-5.48); Red Cell Distribution Width 13 % (10-15); White Blood Count 9.6 10^3/uL (3.5-10.8)
[2022-02-11 11:22] LABS: Calcium 8.4 mg/dL (8.6-10.3); Magnesium 1.7 mg/dL (1.9-2.7); Potassium 4.5 mmol/L (3.5-5.0); eGFR CKD-EPI 75.6 (>60)
[2022-02-11] MEDS ORDERED: Magnesium Sulfate IV 3 GM in NS 0.9% 100 ml BAG 100 ML IVPB ONE (16:11)
[2022-02-11 16:41] LABS: Hematocrit 19 % (42-52); Hemoglobin 6.3 g/dL (14.0-18.0); Mean Corpuscular HGB Conc 34 g/dL (31-36); Mean Corpuscular Hemoglobin 31 pg (27-31); Mean Corpuscular Volume 91 fL (80-94); Mean Platelet Volume 8.5 fL (7.4-10.4); Platelet Count 94 10^3/uL (150-450); Red Blood Count 2.06 10^6 /uL (4.18-5.48); Red Cell Distribution Width 14 % (10-15); White Blood Count 9.7 10^3/uL (3.5-10.8)
[2022-02-11 23:10] LABS: Hematocrit 19 % (42-52); Hemoglobin 6.5 g/dL (14.0-18.0)
[2022-02-12 05:49] LABS: ABS Lymphocytes 1.3 10^3/ul (1.0-4.8); ABS Monocytes 1.3 10^3/ul (0-0.8); ABS Neutrophils 5.7 10^3/ul (1.5-7.7); Eosinophil % 0.3 %; Hematocrit 21 % (42-52); Hemoglobin 7.4 g/dL (14.0-18.0); Lymphocyte % 15.3 %; Mean Corpuscular HGB Conc 36 g/dL (31-36); Mean Corpuscular Hemoglobin 31 pg (27-31); Mean Corpuscular Volume 87 fL (80-94); Mean Platelet Volume 8.4 fL (7.4-10.4); Platelet Count 82 10^3/uL (150-450); Red Blood Count 2.38 10^6 /uL (4.18-5.48); Red Cell Distribution Width 15 % (10-15); White Blood Count 8.3 10^3/uL (3.5-10.8)
[2022-02-12 06:35] LABS: Calcium 8.1 mg/dL (8.6-10.3); Magnesium 2.3 mg/dL (1.9-2.7); Potassium 4.1 mmol/L (3.5-5.0); eGFR CKD-EPI 87.3 (>60)
[2022-02-12 11:24] LABS: Hematocrit 20 % (42-52)
[2022-02-12] MEDS: Morphine 2 MG/ML SYRINGE IV PRN (17:21)
[2022-02-12] MEDS: Acetaminophen IV 1 GM/100ML 1,000 MG/100 ML BAG IV SCH ×2 (17:21→21:56)
[2022-02-12 18:02] LABS: Hematocrit 23 % (42-52); Hemoglobin 7.7 g/dL (14.0-18.0)
[2022-02-12] MEDS: Senna TAB 8.6 mg TAB PO PRN (21:46)
[2022-02-13 05:19] LABS: Hematocrit 23 % (42-52); Hemoglobin 8.1 g/dL (14.0-18.0); Mean Corpuscular HGB Conc 35 g/dL (31-36); Mean Corpuscular Hemoglobin 31 pg (27-31); Mean Corpuscular Volume 87 fL (80-94); Mean Platelet Volume 8.2 fL (7.4-10.4); Platelet Count 99 10^3/uL (150-450); Red Blood Count 2.65 10^6 /uL (4.18-5.48); Red Cell Distribution Width 15 % (10-15); White Blood Count 10.6 10^3/uL (3.5-10.8)
[2022-02-13 06:07] LABS: Calcium 8.4 mg/dL (8.6-10.3); Magnesium 2.1 mg/dL (1.9-2.7); eGFR CKD-EPI 91.2 (>60)
[2022-02-13] MEDS: Acetaminophen IV 1 GM/100ML 1,000 MG/100 ML BAG IV SCH ×3 (06:33→22:05)
[2022-02-13] MEDS: Morphine 2 MG/ML SYRINGE IV PRN (11:36)
[2022-02-13 12:07] LABS: Hematocrit 23 % (42-52); Hemoglobin 7.8 g/dL (14.0-18.0)
[2022-02-13 18:12] LABS: Hematocrit 22 % (42-52); Hemoglobin 7.6 g/dL (14.0-18.0)
[2022-02-13] MEDS: Senna TAB 8.6 mg TAB PO PRN (21:25)
[2022-02-14] MEDS: Morphine 2 MG/ML SYRINGE IV PRN ×2 (01:48→11:21)
[2022-02-14 05:53] LABS: Calcium 8.1 mg/dL (8.6-10.3); Magnesium 1.9 mg/dL (1.9-2.7); Potassium 3.7 mmol/L (3.5-5.0); eGFR CKD-EPI 91.2 (>60)
[2022-02-14] MEDS: Acetaminophen IV 1 GM/100ML 1,000 MG/100 ML BAG IV SCH ×3 (06:12→23:49)
[2022-02-14] MEDS ORDERED: Magnesium Sulfate IV 1GM/100ML 1 GM/100 ML BAG IV ONE (07:31)
[2022-02-14 07:48] LABS: Hematocrit 23 % (42-52); Mean Corpuscular HGB Conc 35 g/dL (31-36); Mean Corpuscular Hemoglobin 31 pg (27-31); Mean Corpuscular Volume 89 fL (80-94); Mean Platelet Volume 8.5 fL (7.4-10.4); Platelet Count 119 10^3/uL (150-450); Red Blood Count 2.61 10^6 /uL (4.18-5.48); Red Cell Distribution Width 15 % (10-15)
[2022-02-14] MEDS: Senna TAB 8.6 mg TAB PO PRN (10:46)
[2022-02-14] MEDS: Magnesium Hydroxide LIQ 30 ML UDC PO ONE ×2 (11:23→11:26)
[2022-02-14] MEDS: Polyethylene Glycol 3350 17 GM PACKET PO SCH ×2 (13:21→16:07)
[2022-02-14] MEDS ORDERED: NS 0.9% 1000 ml BAG 1,000 ML IV ONE (19:12)
[2022-02-15 05:00] LABS: Hematocrit 24 % (42-52); Hemoglobin 8.4 g/dL (14.0-18.0); Mean Corpuscular HGB Conc 34 g/dL (31-36); Mean Corpuscular Hemoglobin 31 pg (27-31); Mean Corpuscular Volume 89 fL (80-94); Mean Platelet Volume 7.6 fL (7.4-10.4); Platelet Count 145 10^3/uL (150-450); Red Blood Count 2.75 10^6 /uL (4.18-5.48); Red Cell Distribution Width 15 % (10-15)
[2022-02-15 05:43] LABS: Calcium 8.1 mg/dL (8.6-10.3); Magnesium 1.9 mg/dL (1.9-2.7); Potassium 3.7 mmol/L (3.5-5.0); eGFR CKD-EPI 98.1 (>60)
[2022-02-15] MEDS: Acetaminophen IV 1 GM/100ML 1,000 MG/100 ML BAG IV SCH ×2 (06:17→14:36)
[2022-02-15] MEDS: Polyethylene Glycol 3350 17 GM PACKET PO SCH ×2 (08:48→12:18)
[2022-02-15 15:25] LABS: Rapid COVID-19 Molecular Undetected (Undetected)
[2022-02-15] MEDS ORDERED: Magnesium Sulfate 2 gm BAG 2 GM/50 ML BAG IVPB ONE (16:04)
[2022-02-15] MEDS: KCL 20 MEQ/100 ML IVPREMIX 20 MEQ/100 ML BAG IV SCH ×2 (18:16→21:43)
[2022-02-15] MEDS ORDERED: Potassium Chloride LIQUID 20 MEQ/15 ML LIQUID PO ONE (19:01)
[2022-02-16] MEDS: Acetaminophen IV 1 GM/100ML 1,000 MG/100 ML BAG IV SCH ×2 (00:45→06:35)
[2022-02-16 04:13] VITALS: BP 132/59
[2022-02-16 06:05] LABS: Hematocrit 26 % (42-52); Hemoglobin 9.1 g/dL (14.0-18.0)
== END 2022-02-16 12:45 | DRG 482 ==
LOC: ED 01:04 → EDHOLD 05:39 → SUATTDRO 05:39 → SSU 10:37
PROVIDERS: ADMIT Hospitalist; ATTEND Student in an Organized Health Care Education/Training Program

== ENCOUNTER 2022-02-17 02:04 | Inpatient (IN) ==
[2022-02-17] MEDS ORDERED: Vancomycin 1,250 MG in NS 0.9% 250 ml 250 ML IVPB ONE (02:52)
[2022-02-17] MEDS ORDERED: Piperacillin/Tazobac ADVAN 3.375 GM in NS 0.9% 100 ml BAG 100 ML IV ONE (02:52)
[2022-02-17 02:58] LABS: ABS Lymphocytes 0.2 10^3/ul (1.0-4.8); ABS Monocytes 1.3 10^3/ul (0-0.8); ABS Neutrophils 13.1 10^3/ul (1.5-7.7); Hematocrit 26 % (42-52); Hemoglobin 8.6 g/dL (14.0-18.0); Lymphocyte % 1.6 %; Mean Corpuscular HGB Conc 33 g/dL (31-36); Mean Corpuscular Hemoglobin 30 pg (27-31); Mean Corpuscular Volume 90 fL (80-94); Mean Platelet Volume 7.3 fL (7.4-10.4); Nucleated Red Blood Cells % 0.1; Platelet Count 191 10^3/uL (150-450); Red Blood Count 2.87 10^6 /uL (4.18-5.48); Red Cell Distribution Width 16 % (10-15); White Blood Count 14.6 10^3/uL (3.5-10.8)
[2022-02-17 03:17] LABS: Albumin 3.5 g/dL (3.2-5.2); Albumin/Globulin Ratio 1.7 (1-3); Calcium 8.5 mg/dL (8.6-10.3); Globulin 2.1 g/dL (2-4); Potassium 4.3 mmol/L (3.5-5.0); Total Bilirubin 2.4 mg/dL (0.2-1.0); Total Protein 5.6 g/dL (6.4-8.9); eGFR CKD-EPI 91.6 (>60)
[2022-02-17] MEDS ORDERED: Morphine 2 MG/ML SYRINGE IV ONE (05:09)
[2022-02-17] MEDS: Morphine 2 MG/ML SYRINGE IV PRN ×4 (06:04→11:25)
[2022-02-17] MEDS ORDERED: diazePAM INJ CARPUJECT 5 MG/ML SYRINGE IV PRN (09:21)
[2022-02-17] MEDS ORDERED: Acetaminophen IV 1 GM/100ML 1,000 MG/100 ML BAG IV PRN (09:23)
[2022-02-17] MEDS ORDERED: Atropine 1% (ORAL/SL) 15 ML BTL SL PRN (10:00)
[2022-02-17] MEDS ORDERED: diazePAM INJ CARPUJECT 5 MG/ML SYRINGE IV ONE (11:43)
[2022-02-17] MEDS ORDERED: diazePAM INJ CARPUJECT 5 MG/ML SYRINGE ONE (11:45)
[2022-02-17 13:17] VITALS: BP 138/72
== END 2022-02-17 13:52 | disposition expired | DRG 296 ==
LOC: ED 02:04 → EDHOLD 04:15 → MED 13:34
PROVIDERS: ADMIT Internal Medicine; ATTEND Internal Medicine